=== PATIENT | female | born 1975 | race Two or more races ===

== ENCOUNTER → 2025-06-20 | Outpatient (CLI) | payer MEDICAID, SELFPAY ==
--- NOTE | 2025-06-20 15:52 | XR_ITS ---
Examination: Shoulder,left, 3 views Technique: Shoulder AP internal rotation, AP external rotation, Y view shoulder, 3 views Exam date and time :June 20, 2025 1622 hours INDICATIONS: Left shoulder pain beginning one month ago. FINDINGS: Moderate osteopenia Mild narrowing glenohumeral joint No fracture or shoulder dislocation IMPRESSION: Mild narrowing glenohumeral joint
== END | disposition home or self-care (01) ==
PROVIDERS: PCP Internal Medicine
DX: M25.812 Other specified joint disorders, left shoulder (principal)
CPT/HCPCS: 73030

== ENCOUNTER → 2025-09-22 | Outpatient (CLI) | payer MEDICAID, SELFPAY ==
--- NOTE | 2025-09-22 07:30 | XR_ITS ---
MRI shoulder, left, without contrast. Date and time: September 22, 2025, 0756 hours INDICATIONS: Left shoulder pain radiating down the arm joint locking and swelling 7 months Technique: Multiple axial, sagittal and coronal sections of the shoulder have been obtained. Siemens high-resolution 1.5 Fior MRI scanner is utilized. Axial fat-suppressed sections, TR 2350, TE 18 T2-weighted coronal fat-saturated images, TR 3500, TE 7100 T1-weighted coronal images, TR 500, TE 15 T2-weighted sagittal fat-saturated images, TR 3500, TE 57 T1-weighted sagittal sections, TR 504, TE 13. Findings: Supraspinatus tendon insertion is intact. Infraspinatus tendon insertion is intact. Subscapularis insertion is intact. Subscapularis bursa is not seen. Long head of the biceps is in the bicipital groove. No definite tear of the biceps superior labral anchor is seen. Retraction of the musculotendinous junction of the rotator cuff is not seen . Tendinosis pattern is moderate. Distance between the acromium and humeral head is 3.3 mm Atrophy of the supraspinatus muscle is moderate. Atrophy of the infraspinatus muscle is moderate. Sagittal sections demonstrate a horizontal acromion. Acromioclavicular joint demonstrates prominent osteoarthritis. Osacromiale is not identified. Labral margins intact. Bony glenoid fossa on the sagittal sections does not demonstrate osseous defect. Occult fracture or area of avascular necrosis is not seen. Acromioclavicular joint separation is not visible. Defect in the posterolateral margin of the humeral head is not seen Impression: Rotator cuff intact Rotator cuff impingement syndrome with moderate tendinosis Labral margins are intact
== END | disposition home or self-care (01) ==
LOC: SMRI 07:16
DX: M75.102 Unspecified rotator cuff tear or rupture of left shoulder, not specified as traumatic (principal)
CPT/HCPCS: 73221